=== PATIENT | male | born 1955 | race African-American/Black ===

== ENCOUNTER 2021-10-25 09:00 | Inpatient (IN) | payer OTHER ==
[~2021-10-25] VITALS: Ht 190.5 cm; Wt 112.0 kg
[2021-10-25 10:16] LABS: BASOPHILS % (AUTO) 0.9 % (0.0-5.0); EOSINOPHILS % (AUTO) 5.5 % (0.0-8.0); HEMATOCRIT 44.3 % (42-54); LYMPHOCYTES % (AUTO) 34.7 % (21.0-51.0); MEAN CORPUSCULAR HEMOGLOBIN 28.5 pg (27.0-33.0); MEAN CORPUSCULAR HGB CONC 32.1 g/dL (32.0-36.0); MEAN CORPUSCULAR VOLUME 88.8 fL (79-99); MONOCYTES % (AUTO) 14.8 % (3.0-13.0); NEUTROPHILS % (AUTO) 43.9 % (40.0-77.0); PLATELET COUNT (AUTO) 256 K/uL (130-400); RED BLOOD CELL COUNT(AUTO) 4.99 MIL/uL (4.50-6.20); RED CELL DISTRIBUTION WIDTH 13.2 % (11.0-15.5); WHITE BLOOD COUNT (AUTO) 4.5 K/uL (4.8-10.8)
[2021-10-25 10:26] LABS: INR 0.98 (0.85-1.15); PROTHROMBIN TIME 10.7 SEC (9.6-11.6)
[2021-10-25 10:30] LABS: POTASSIUM 4.2 mmol/L (3.5-5.1)
[2021-10-25 10:35] LABS: APPEARANCE,URINE CLEAR (CLEAR); BILIRUBIN,URINE NEGATIVE (NEGATIVE); COLOR,URINE YELLOW (YELLOW); GLUCOSE, URINE (UA) >=1000 mg/dL (NEGATIVE); KETONES,URINE NEGATIVE (NEGATIVE); LEUKOCYTE ESTERASE ,URINE NEGATIVE (NEGATIVE); NITRATE,URINE NEGATIVE (NEGATIVE); OCCULT BLOOD,URINE NEGATIVE (NEGATIVE); PROTEIN,URINE NEGATIVE (NEGATIVE); UROBILINOGEN,URINE 0.2 mg/dL (0.2-1.0)
[2021-10-25 10:53] LABS: BACTERIA,URINE Rare /HPF (None Seen); RBC,URINE 0-1 /HPF (0-1); SQUAMOUS EPITHELIAL CELL,UR Rare /HPF (0-2); WBC,URINE 0-1 /HPF (0-1)
[2021-10-26] MEDS ORDERED: METF-446 PO (10:32)
[2021-10-26] MEDS ORDERED: CARV25TA PO (10:32)
[2021-10-26] MEDS ORDERED: SIMV-46 PO (10:32)
[2021-10-26] MEDS ORDERED: GABA300C PO (10:32)
[2021-10-26] MEDS ORDERED: EMPA10TA PO (10:32)
[2021-10-26] MEDS ORDERED: SEMA1PEN3 SQ (10:32)
[2021-10-26] MEDS ORDERED: LOSA100T58 PO (10:32)
[2021-10-26] MEDS ORDERED: HYDR12.54 PO (10:32)
[2021-10-27] VITALS (24 sets, daily range): BP systolic 128–142; BP diastolic 69–92
[2021-10-27] MEDS ORDERED: 0.9%NACL 1000ML 1,000 ML IV ONE (06:37)
[2021-10-27] MEDS ORDERED: CLINDAMYCIN IVPB 900MG/50ML 50 ML IV ONE (06:37)
[2021-10-27] MEDS ORDERED: SUCCINYLCHOLINE CHLORIDE 20 MG/ML 10 ML VIAL ONE (07:31)
[2021-10-27] MEDS ORDERED: DEXAMETHASONE SOD PHOSPHATE 10MG/ML 1ML VIAL ONE (07:31)
[2021-10-27] MEDS ORDERED: LIDOCAINE PF 100MG/5ML (2%) SYRINGE 5ML ONE (07:31)
[2021-10-27] MEDS ORDERED: MIDAZOLAM HCL 1 MG/ML 2ML VIAL ONE (07:32)
[2021-10-27] MEDS ORDERED: NEOSTIGMINE 5MG/5ML SYR IV ONE (07:32)
[2021-10-27] MEDS ORDERED: ROCURONIUM 10MG/1ML SYR 10 MG/ML ML ONE (07:32)
[2021-10-27] MEDS ORDERED: GLYCOPYRROLATE 1 MG/5 ML SYRINGE ONE (07:32)
[2021-10-27] MEDS ORDERED: ONDANSETRON 4MG INJ ONE (07:32)
[2021-10-27] MEDS ORDERED: PROPOFOL 10 MG/ML 20ML VIAL IV ONE ×2 (07:32→08:45)
[2021-10-27] MEDS ORDERED: FENTANYL CITRATE PF 50 MCG/1 ML 2ML VIAL ONE (07:33)
[2021-10-27] MEDS ORDERED: PHENYLEPHRINE HCL 10 MG/ML 1ML VIAL IV ONE ×2 (07:38→11:00)
[2021-10-27] MEDS ORDERED: ROPIVACAINE 0.5% 5MG/ML 30ML IJ ONE (07:56)
[2021-10-27] MEDS ORDERED: CEFAZOLIN SODIUM 1 GM VIAL IVP ONE (08:00)
[2021-10-27] MEDS ORDERED: CLINDAMYCIN 900MG/6ML INJ ONE (08:18)
[2021-10-27] MEDS ORDERED: TRANEXAMIC ACID 1000MG/10ML ONE ×2 (08:46→13:38)
[2021-10-27] MEDS ORDERED: EPHEDRINE SULFATE 50 MG/ML AMPULE ONE (09:21)
[2021-10-27] MEDS: VANCOMYCIN 1G VIAL ONE ×2 (09:42→10:03)
[2021-10-27] MEDS ORDERED: ALBUMIN (HUMAN) 5% 250 ML IV ONE (11:44)
[2021-10-27] MEDS ORDERED: MEPERIDINE-PF 25 MG/ML SYG ONE ×2 (12:53→14:09)
[2021-10-27] MEDS ORDERED: CALCIUM CARB 500MG PO PRN (13:00)
[2021-10-27] MEDS ORDERED: DiphenhydrAMINE HCL 50 MG/ML VIAL IVP PRN (13:00)
[2021-10-27] MEDS: ACETAMINOPHEN 500 MG TABLET PO SCH ×2 (13:00→20:29)
[2021-10-27] MEDS ORDERED: POTASSIUM CHLORIDE 20MEQ/100ML 100 ML IV PRN (13:00)
[2021-10-27] MEDS ORDERED: FE FUMARATE/FA/MV, MIN COMB#15 1 TAB PO PRN (13:00)
[2021-10-27] MEDS ORDERED: LIDOCAINE HCL-MPF 1% 2ML VIAL IV PRN (13:00)
[2021-10-27] MEDS ORDERED: POTASSIUM CHLORIDE 10% ELIXIR 20 MEQ/15 ML UDCUP PO PRN (13:00)
[2021-10-27] MEDS ORDERED: 0.9% NACL 250ML IV SCH (13:00)
[2021-10-27] MEDS ORDERED: KETOROLAC 15MG/ML VIAL (15MG/ML) IV PRN (13:00)
[2021-10-27] MEDS ORDERED: ONDANSETRON 4MG INJ IVP PRN (13:00)
[2021-10-27] MEDS ORDERED: KCL 20 MEQ ERTAB PO PRN (13:00)
[2021-10-27] MEDS ORDERED: VANCOMYCIN PROTOCOL PER PHARMACY IV SCH (15:00)
[2021-10-27] MEDS ORDERED: VANCOMYCIN 1.75 GM/250 ML BAG 250 ML IV ONE (16:00)
[2021-10-27] MEDS: OXYCODONE HCL 5 MG TAB PO PRN (16:14)
[2021-10-27] MEDS: 0.9%NACL 1000ML 1,000 ML IV SCH ×2 (16:15→21:02)
[2021-10-27] MEDS: INSULIN HUMULIN R 100 UNIT/ML 3ML SQ SCH ×2 (16:30→20:31)
[2021-10-27] MEDS ORDERED: HYDR-4060 PO (16:54)
[2021-10-27] MEDS ORDERED: (Semaglutide (Ozempic) 1 MG) SQ SCH (17:00)
[2021-10-27] MEDS: METFORMIN HCL 500 MG TABLET PO SCH (18:54)
[2021-10-27] MEDS: CLINDAMYCIN IVPB 900MG/50ML 50 ML IV SCH (18:54)
[2021-10-27] MEDS: CELECOXIB 200 MG CAP PO SCH (20:28)
[2021-10-27] MEDS: GABAPENTIN 300 MG CAPSULE PO SCH (20:29)
[2021-10-27] MEDS: FAMOTIDINE 20MG TAB PO SCH (20:29)
[2021-10-27] MEDS: CARVEDILOL 25 MG TABLET PO SCH (20:29)
[2021-10-27] MEDS: ASPIRIN 81 MG EC TAB PO SCH (20:29)
[2021-10-27] MEDS: SIMVASTATIN 20 MG TABLET PO SCH (20:29)
[2021-10-27] MEDS ORDERED: NON-FORMULARY MEDICATION 1 EACH (Metformin HCl 1,000 MG) PO SCH (21:00)
[2021-10-27] MEDS ORDERED: NON-FORMULARY MEDICATION 1 EACH (Simvastatin 40 MG) PO SCH (21:00)
[2021-10-28 00:04] VITALS: BP 131/69
[2021-10-28] MEDS: CLINDAMYCIN IVPB 900MG/50ML 50 ML IV SCH (02:04)
[2021-10-28] MEDS ORDERED: VANCOMYCIN 1.25 GM/250 ML BAG 250 ML IV ONE (04:00)
[2021-10-28 04:04] LABS: HEMATOCRIT 40.1 % (42-54); MEAN CORPUSCULAR HEMOGLOBIN 28.5 pg (27.0-33.0); MEAN CORPUSCULAR HGB CONC 32.2 g/dL (32.0-36.0); MEAN CORPUSCULAR VOLUME 88.5 fL (79-99); RED BLOOD CELL COUNT(AUTO) 4.53 MIL/uL (4.50-6.20); RED CELL DISTRIBUTION WIDTH 13.4 % (11.0-15.5); WHITE BLOOD COUNT (AUTO) 10.6 K/uL (4.8-10.8)
[2021-10-28] MEDS: ACETAMINOPHEN 500 MG TABLET PO SCH ×3 (04:07→20:01)
[2021-10-28 04:21] VITALS: BP 118/66
[2021-10-28 04:25] LABS: POTASSIUM 3.7 mmol/L (3.5-5.1)
[2021-10-28] MEDS: OXYCODONE HCL 5 MG TAB PO PRN ×3 (05:30→15:17)
[2021-10-28] MEDS: INSULIN HUMULIN R 100 UNIT/ML 3ML SQ SCH ×4 (06:47→20:59)
[2021-10-28 08:00] VITALS: BP 130/67
[2021-10-28] MEDS: 0.9%NACL 1000ML 1,000 ML IV SCH (09:00)
[2021-10-28] MEDS ORDERED: NON-FORMULARY MEDICATION 1 EACH (Hydrochlorothiazide 12.5 MG) PO SCH (09:00)
[2021-10-28] MEDS: GABAPENTIN 300 MG CAPSULE PO SCH ×2 (09:44→20:00)
[2021-10-28] MEDS: CELECOXIB 200 MG CAP PO SCH ×2 (09:45→20:00)
[2021-10-28] MEDS: LOSARTAN 100 MG TABLET PO SCH (09:46)
[2021-10-28] MEDS: METFORMIN HCL 500 MG TABLET PO SCH ×2 (09:46→17:39)
[2021-10-28] MEDS: CARVEDILOL 25 MG TABLET PO SCH ×2 (09:46→20:00)
[2021-10-28] MEDS: ASPIRIN 81 MG EC TAB PO SCH ×2 (09:46→20:00)
[2021-10-28] MEDS: FAMOTIDINE 20MG TAB PO SCH ×2 (09:46→20:00)
[2021-10-28] MEDS: HYDROCHLOROTHIAZIDE 25 MG TABLET PO SCH (09:46)
[2021-10-28] MEDS: (Empagliflozin (Jardiance) 10 MG) PO SCH (09:47)
[2021-10-28] MEDS: POLYETHYLENE GLYCOL 3350 17 GM POWD.PACK PO SCH (09:47)
[2021-10-28] MEDS: TAMSULOSIN HCL 0.4 MG CAP.ER.24H PO SCH (09:47)
[2021-10-28 12:00] VITALS: BP 101/53
[2021-10-28] MEDS: TRAMADOL HCL 50 MG TABLET PO PRN ×2 (12:48→17:37)
[2021-10-28 16:00] VITALS: BP 141/62
[2021-10-28] MEDS: SIMVASTATIN 20 MG TABLET PO SCH (20:00)
[2021-10-28] MEDS ORDERED: TEMAZEPAM 15 MG CAPSULE PO PRN (21:00)
[2021-10-28 21:02] VITALS: BP 114/55
[2021-10-29] MEDS: ACETAMINOPHEN 500 MG TABLET PO SCH ×2 (04:48→13:25)
[2021-10-29] MEDS: INSULIN HUMULIN R 100 UNIT/ML 3ML SQ SCH ×2 (06:45→11:02)
[2021-10-29 08:00] VITALS: BP 137/76
[2021-10-29] MEDS: FAMOTIDINE 20MG TAB PO SCH (09:00)
[2021-10-29] MEDS: CARVEDILOL 25 MG TABLET PO SCH (09:00)
[2021-10-29] MEDS: METFORMIN HCL 500 MG TABLET PO SCH (09:00)
[2021-10-29] MEDS: CELECOXIB 200 MG CAP PO SCH (09:00)
[2021-10-29] MEDS: TAMSULOSIN HCL 0.4 MG CAP.ER.24H PO SCH (09:00)
[2021-10-29] MEDS: (Empagliflozin (Jardiance) 10 MG) PO SCH (09:00)
[2021-10-29] MEDS: HYDROCHLOROTHIAZIDE 25 MG TABLET PO SCH (09:00)
[2021-10-29] MEDS: ASPIRIN 81 MG EC TAB PO SCH (09:00)
[2021-10-29] MEDS: LOSARTAN 100 MG TABLET PO SCH (09:00)
[2021-10-29] MEDS: POLYETHYLENE GLYCOL 3350 17 GM POWD.PACK PO SCH (09:01)
[2021-10-29] MEDS: GABAPENTIN 300 MG CAPSULE PO SCH (09:01)
[2021-10-29] MEDS: OXYCODONE HCL 5 MG TAB PO PRN ×2 (11:01→17:41)
[2021-10-29 12:00] VITALS: BP 133/69
[2021-10-30] MEDS ORDERED: BISACODYL 10 MG SUPP.RECT RC PRN (13:00)
== END 2021-10-29 18:00 | disposition home health service (06) | DRG 483 ==
LOC: DAHIP 10-27 06:28 → 4AH 10-27 14:39
PROVIDERS: ADMIT Orthopaedic Surgery; ATTEND Orthopaedic Surgery
PROC: 0RRK00Z Replacement of Left Shoulder Joint with Reverse Ball and Socket Synthetic Substitute, Open Approach (ICD-10-PCS; principal; 2021-10-27 08:43)
PROC: 0LS40ZZ Reposition Left Upper Arm Tendon, Open Approach (ICD-10-PCS; 2021-10-27 08:43)
PROC: 3E0T3BZ Introduction of Anesthetic Agent into Peripheral Nerves and Plexi, Percutaneous Approach (ICD-10-PCS; 2021-10-27 08:43)
DX: M12.812 Other specific arthropathies, not elsewhere classified, left shoulder (principal); M75.102 Unspecified rotator cuff tear or rupture of left shoulder, not specified as traumatic; D64.9 Anemia, unspecified; E11.9 Type 2 diabetes mellitus without complications; E78.00 Pure hypercholesterolemia, unspecified; I10 Essential (primary) hypertension; Z88.8 Allergy status to other drugs, medicaments and biological substances
CPT/HCPCS: 36415; 73030; 80048; 81001; 82948; 85025; 85027; 85610; 87088; 87635; 87641; 93005; 97039; G0378; J0330; J1100; J1885; J2001; J2175; J2250; J2370; J2405; J2704; J2710; J2795; J3010; J3370; J3490; J7030; P9045